=== PATIENT | female | born 1975 | race Caucasian/White ===

== ENCOUNTER 2019-01-30 14:48 | Emergency (ER) | payer OTHER ==
[~2019-01-30] VITALS: Ht 170.2 cm; Wt 93.6 kg
[~2019-01-30 14:48] MED LIST: CLIN300C10 PO; PNV1TABL43
[2019-01-30 14:57] VITALS: BP 133/86; PULSE 90; RESP 16; Ht 170.2 cm; Wt 93.6 kg
--- NOTE | 2019-01-30 14:58 | EN ---
Date/Time of Note Date/Time of Note DATE: 01/30/19 TIME: 14:57 ER Progress Note [id number] female with history of bee sting yesterday. Complains of worsening redness and warmth in left forearm. No SIRS criteria or signs of anaphylaxis. ED2 appropriate. DAYO MELGAR MD Jan 30, 2019 14:58
--- NOTE | 2019-01-30 15:11 | ERD ---
ER Documentation Chief Complaint Chief Complaint bee sting 2 days ago w/ increasing erythema/pain to L forearm. no fever HPI [id number] 43-year-old male presents with redness and swelling to her left forearm that began yesterday. She does believe she was bit by an insect although she did not witness that she can see that insect bite josie. She eliza a blue line around the swelling yesterday and woke up today and it was more swollen than before. She describes a burning pain and itchiness that radiates up her extremity. No fever. No bleeding or drainage. ROS All systems reviewed and are negative except as per history of present illness. Medications Home Meds Active Scripts Clindamycin Hcl* (Clindamycin Hcl*) 300 Mg Capsule, 300 MG PO TID for 10 Days, CAP Prov:IDALIA ORTEGA PA-C 01/30/19 Reported Medications Vit/Fe Fumarate/Fa* ( Vitamin Tablet*) 1 Tab Tablet 06/24/10 Allergies Allergies: Coded Allergies: aspirin (Verified Allergy, Severe, SWELLING, 06/24/10) PMhx/Soc History of Surgery: Yes (tubal ligation 12 years ago) Anesthesia Reaction: No Hx Neurological Disorder: No Hx Respiratory Disorders: No Hx Cardiac Disorders: No Hx Psychiatric Problems: Yes (pt states, "I'm Bipolar but I don't take my meds.") Hx Miscellaneous Medical Probl: No Hx Alcohol Use: Yes Hx Substance Use: Yes Hx Tobacco Use: Yes Smoking Status: Current every day smoker FmHx Family History: No diabetes Physical Exam Vitals Vital Signs Date Temp Pulse Resp B/P (MAP) Pulse Ox O2 O2 Flow FiO2 Time Delivery Rate 01/30/19 98.1 90 16 133/86 98 14:57 (102) Physical Exam Const: No acute distress Head: Atraumatic Eyes: Normal Conjunctiva ENT: Normal External Ears, Nose and Mouth. Neck: Full range of motion. No meningismus. Resp: Clear to auscultation bilaterally Cardio: Regular rate and rhythm, no murmurs Abd: Soft, non tender, non distended. Normal bowel sounds Skin: Left forearm has a large area of erythema and indurated skin, it is warm and tender to palpation, no fluctuance Procedures/MDM Patient has infected bug bite. She is treated outpatient with clindamycin. No indication for incision and drainage at this time. Patient counseled regarding my diagnostic impression and care plan. Prior to discharge all questions answered. Pt agrees with treatment plan and understands strict return precautions. Pt is instructed to follow up with primary care provider within 24- 48 hours. Precautionary instructions provided including instructions to return to the ER if not improving or for any worsening or changing symptoms or concerns. Departure Diagnosis: Primary Impression: Bug bite with infection Condition: Stable Patient Instructions: Insect Sting/Bite, Infected Additional Instructions: Call your primary care doctor TOMORROW for an appointment during the next 1-2 days.See the doctor sooner or return here if your condition worsens before your appointment time. IDALIA ORTEGA PA-C Jan 30, 2019 15:11
== END 2019-01-30 15:23 | disposition home or self-care (01) ==
LOC: FTE 14:48
DX: S50.862A Insect bite (nonvenomous) of left forearm, initial encounter (principal); L08.9 Local infection of the skin and subcutaneous tissue, unspecified; W57.XXXA Bitten or stung by nonvenomous insect and other nonvenomous arthropods, initial encounter
CPT/HCPCS: 99283